=== PATIENT | female | born 2000 | race Two or more races ===

== ENCOUNTER 2024-08-11 13:57 | Outpatient (CLI) | payer OTHER | END 2024-08-11 13:58 | disposition home or self-care (01) | LOC: PRENATAL 13:57 | PROVIDERS: ATTEND Obstetrics & Gynecology Maternal & Fetal Medicine | DX: O36.80X0 Pregnancy with inconclusive fetal viability, not applicable or unspecified (principal); Z36.82 Encounter for antenatal screening for nuchal translucency; O36.1999 Maternal care for other isoimmunization, unspecified trimester, other fetus; Z36.9 Encounter for antenatal screening, unspecified; Z14.8 Genetic carrier of other disease; Z3A.12 12 weeks gestation of pregnancy ==

== ENCOUNTER 2024-09-24 11:24 | Outpatient (CLI) | payer OTHER | END 2024-09-24 11:26 | disposition home or self-care (01) | LOC: PRENATAL 11:24 | PROVIDERS: ATTEND Obstetrics & Gynecology Maternal & Fetal Medicine | DX: O44.00 Complete placenta previa NOS or without hemorrhage, unspecified trimester (principal); O99.019 Anemia complicating pregnancy, unspecified trimester; O36.1999 Maternal care for other isoimmunization, unspecified trimester, other fetus; Z3A.19 19 weeks gestation of pregnancy ==

== ENCOUNTER → 2024-12-27 10:12 | Outpatient (CLI) | payer OTHER | END | disposition home or self-care (01) | LOC: PRENATAL 10:12 | PROVIDERS: ATTEND Obstetrics & Gynecology Maternal & Fetal Medicine | DX: O26.849 Uterine size-date discrepancy, unspecified trimester (principal); O36.8199 Decreased fetal movements, unspecified trimester, other fetus; O99.019 Anemia complicating pregnancy, unspecified trimester; O36.1999 Maternal care for other isoimmunization, unspecified trimester, other fetus; Z3A.32 32 weeks gestation of pregnancy ==

== ENCOUNTER 2025-02-01 02:51 | Inpatient (IN) | payer OTHER ==
[~2025-02-01] VITALS: Ht 157.5 cm; Wt 62.1 kg
[2025-02-01] VITALS (10 sets, daily range): BP systolic 11–137; BP diastolic 66–93
[2025-02-01] MEDS ORDERED: AMPICILLIN SODIUM 2,000 MG VIAL IV ONE (03:00)
[2025-02-01] MEDS ORDERED: RINGERS SOLUTION,LACTATED 1,000 ML IV SCH (03:00)
[2025-02-01] MEDS ORDERED: VITAMIN C500 M6 PO (03:21)
[2025-02-01] MEDS ORDERED: PRENATAL TABLE1 EAC4 PO (03:22)
[2025-02-01] MEDS ORDERED: ADULT LOW DOSE81 M1 PO (03:22)
[2025-02-01 03:52] LABS: PARTIAL THROMBOPLASTIN TIME 28.8 SECONDS (22.0-34.0); PROTHROMBIN TIME 10.9 SECONDS (9.0-11.5)
[2025-02-01 03:53] LABS: HEMATOCRIT 33.3 % (36.0-45.00); MEAN CELL VOLUME 72.6 fL (80.00-100.00); MEAN CORPUSCULAR HEMOGLOBIN 23.6 pg (27.00-32.0); MEAN CORPUSCULAR HGB CONC 32.6 g/dl (32.0-36.0); PLATELET COUNT 195 K/uL (150-450); RED CELL DISTRIBUTION WIDTH 15.9 % (11.5-14.5)
[2025-02-01 03:55] LABS: ALBUMIN 3.1 gm/dL (3.4-5.0); BILIRUBIN TOTAL 0.24 mg/dL (0.3-1.2); CALCIUM 9.5 mg/dL (8.5-10.1); CREATININE SERUM 0.75 mg/dL (0.55-1.02); GFR 95.76; GLOBULINA 3.9 G/DL (2.4-3.5); POTASSIUM 4.12 mEq/L (3.5-5.1)
[2025-02-01 03:57] LABS: HEMOGLOBIN 10.9 g/dL (12.0-15.00)
[2025-02-01] MEDS ORDERED: MORPHINE SULFATE 4 MG/ML CARTRIDGE IV ONE (04:00)
[2025-02-01 04:28] LABS: URINE APPEARANCE CLEAR; URINE BILIRRUBIN NEGATIVE (NEGATIVE); URINE COLOR YELLOW; URINE GLUCOSE NEGATIVE (NEGATIVE); URINE KETONE NEGATIVE (NEGATIVE)
[2025-02-01 04:29] LABS: PH,URINE 6.5; URINE LEUKOCYTE MODERATE; URINE NITRATE NEGATIVE; URINE PROTEIN 100 (NEGATIVE); URINE UROBILINOGEN 0.2 E.U./dl
[2025-02-01 04:33] LABS: URINE EPITHELIAL CELLS 64.1 uL (0.0-38.8); URINE RBC 45.9 uL (0.0-20.8); URINE WBC 189.8 uL (0.0-23.2)
[2025-02-01 04:34] LABS: URINE BACTERIA 1925.2 uL (0.0-1933)
[2025-02-01 04:36] LABS: URINE BLOOD SMALL; URINE CAST 0.88 uL (0.0-1.40); URINE MUCUS NEGATIVE; URINE YEAST FEW /hpf
[2025-02-01] MEDS ORDERED: OXYTOCIN 1,000 ML IV SCH (06:00)
[2025-02-01] MEDS ORDERED: ERYTHROMYCIN BASE OPHT 1GM EACH TUBE OP ONE (06:00)
[2025-02-01] MEDS ORDERED: CHLORHEXIDINE GLUCONATE 120 ML BOTTLE TOP ONE (06:00)
[2025-02-01] MEDS ORDERED: LIDOCAINE HCL 1% 10ML VIAL IJ ONE (06:15)
[2025-02-01] MEDS ORDERED: IBUprofen 600 MG TABLET PO SCH (08:00)
[2025-02-01] MEDS ORDERED: AMPICILLIN SODIUM 1,000 MG VIAL IV SCH (08:00)
[2025-02-01 12:50] LABS: HEMATOCRIT 25.9 % (36.0-45.00); MEAN CELL VOLUME 73.4 fL (80.00-100.00); MEAN CORPUSCULAR HGB CONC 32.2 g/dl (32.0-36.0); PLATELET COUNT 150 K/uL (150-450); RED BLOOD COUNT 3.54 M/uL (4.00-6.00); RED CELL DISTRIBUTION WIDTH 15.8 % (11.5-14.5)
[2025-02-01 12:53] LABS: HEMOGLOBIN 8.3 g/dL (12.0-15.00); MEAN CORPUSCULAR HEMOGLOBIN 23.4 pg (27.00-32.0)
[2025-02-02 01:05] VITALS: BP 131/82
[2025-02-02 08:00] VITALS: BP 103/64
[2025-02-02 15:59] VITALS: BP 109/72
[2025-02-02] MEDS ORDERED: FERROUS SULFATE 325 MG TABLET.EC PO SCH (17:00)
[2025-02-03 01:03] VITALS: BP 116/78
[2025-02-03 05:29] VITALS: BP 106/69
[2025-02-03 08:30] VITALS: BP 119/77
== END 2025-02-03 12:01 | disposition home or self-care (01) | DRG 807 ==
LOC: OB/GYN 02:51 → LDR 02:51 → OB/GYN 05:44
PROVIDERS: Obstetrics & Gynecology; ADMIT Obstetrics & Gynecology; ATTEND Obstetrics & Gynecology
PROC: 10E0XZZ Delivery of Products of Conception, External Approach (ICD-10-PCS; principal; 2025-02-01)
PROC: 0UQMXZZ Repair Vulva, External Approach (ICD-10-PCS; 2025-02-01)
PROC: 4A1HXCZ Monitoring of Products of Conception, Cardiac Rate, External Approach (ICD-10-PCS; 2025-02-01)
DX: O71.82 Other specified trauma to perineum and vulva (principal); Z37.0 Single live birth; O69.81X0 Labor and delivery complicated by cord around neck, without compression, not applicable or unspecified; O99.824 Streptococcus B carrier state complicating childbirth; Z3A.37 37 weeks gestation of pregnancy